=== PATIENT | female | born 1995 | race Caucasian/White ===

== ENCOUNTER 2018-07-09 23:50 | Emergency (ER) | payer OTHER ==
[2018-07-10 01:12] LABS: Urine Blood NEGATIVE (NEG); Urine Glucose NEGATIVE (NEG); Urine Protein NEGATIVE (NEG); Urine Specific Gravity 1.025 (1.005-1.030)
[2018-07-10] MEDS ORDERED: IBUPROFEN 400 MG TAB ONE (03:14)
[2018-07-10] MEDS ORDERED: ACETAMINOPHEN 500 MG TAB ONE (03:15)
[2018-07-10] MEDS ORDERED: IBUPROFEN 200 MG TAB PO ONE (03:15)
--- NOTE | 2018-07-10 05:42 | EDPHYS ---
Physician Documentation [facility] Name: Heena Carlisle Age: 22 yrs Sex: Female : 1995 Arrival Date: 07/09/2018 Time: 23:51 Bed 16 Private MD: ED Physician Nicko Aleman HPI: 07/10 07:25 This 22 yrs old Female presents to ER via Ambulatory with complaints of Low wa Back Pain. 07:25 The patient presents with pain that is acute, and an injury, fell. hit lower back on wa edge of object. The symptoms are located in the lumbar area. The pain does not radiate. The problem was sustained during a fall. Onset: The symptoms/episode began/occurred yesterday. Modifying factors: The patient symptoms are alleviated by nothing, the patient symptoms are aggravated by movement. Associated signs and symptoms: The patient has no apparent associated signs or symptoms. Severity of symptoms: At their worst the symptoms were moderate, in the emergency department the symptoms are actually worse. The patient has not experienced similar symptoms in the past. The patient has not recently seen a physician. 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 - Social history:: Smoking status: Patient/guardian denies using tobacco. - Ebola Screening: : No symptoms or risks identified at this time. - Family history:: not pertinent. - Hospitalizations: : No recent hospitalization is reported. ROS: 07:27 Constitutional: Negative for fever, chills, and weight loss, Eyes: Negative for injury, wa pain, redness, and discharge, ENT: Negative for injury, pain, and discharge, Neck: Negative for injury, pain, and swelling, Cardiovascular: Negative for chest pain, palpitations, and edema, Respiratory: Negative for shortness of breath, cough, wheezing, and pleuritic chest pain, Abdomen/GI: Negative for abdominal pain, nausea, vomiting, diarrhea, and constipation, : Negative for injury, bleeding, discharge, and swelling, MS/Extremity: Negative for injury and deformity, Skin: Negative for injury, rash, and discoloration, Neuro: Negative for headache, weakness, numbness, tingling, and seizure, Psych: Negative for depression, anxiety, suicide ideation, homicidal ideation, and hallucinations. 07:27 Back: Positive for pain at rest, pain with movement, Negative for radiated pain. Exam: 07:27 Constitutional: This is a well developed, well nourished patient who is awake, alert, wa and in no acute distress. Head/Face: Normocephalic, atraumatic. Eyes: Pupils equal round and reactive to light, extra-ocular motions intact. Lids and lashes normal. Conjunctiva and sclera are non-icteric and not injected. Cornea within normal limits. Periorbital areas with no swelling, redness, or edema. ENT: Nares patent. No nasal discharge, no septal abnormalities noted. Tympanic membranes are normal and external auditory canals are clear. Oropharynx with no redness, swelling, or masses, exudates, or evidence of obstruction, uvula midline. Mucous membranes moist. Neck: Trachea midline, no thyromegaly or masses palpated, and no cervical lymphadenopathy. Supple, full range of motion without nuchal rigidity, or vertebral point tenderness. No Meningismus. Chest/axilla: Normal chest wall appearance and motion. Nontender with no deformity. No lesions are appreciated. Cardiovascular: Regular rate and rhythm with a normal S1 and S2. No gallops, murmurs, or rubs. Normal PMI, no JVD. No pulse deficits. Respiratory: Lungs have equal breath sounds bilaterally, clear to auscultation and percussion. No rales, rhonchi or wheezes noted. No increased work of breathing, no retractions or nasal flaring. Abdomen/GI: Soft, non-tender, with normal bowel sounds. No distension or tympany. No guarding or rebound. No evidence of tenderness throughout. Skin: Warm, dry with normal turgor. Normal color with no rashes, no lesions, and no evidence of cellulitis. MS/ Extremity: Pulses equal, no cyanosis. Neurovascular intact. Full, normal range of motion. Neuro: Awake and alert, GCS 15, oriented to person, place, time, and situation. Cranial nerves II-XII grossly intact. Motor strength 5/5 in all extremities. Sensory grossly intact. Cerebellar exam normal. Normal gait. Psych: Awake, alert, with orientation to person, place and time. Behavior, mood, and affect are within normal limits. 07:27 Back: pain, that is moderate, of the lumbar area. Vital Signs: 00:16 BP 123 / 72; Pulse 93; Resp 18; Temp 98.3; Pulse Ox 97% on R/A; Weight 94.35 kg; Height ea 5 ft. 4 in. (162.56 cm); Pain 7/10; 01:15 BP 118 / 70; Pulse 90; Resp 16; Pulse Ox 99% ; rr5 02:00 BP 126 / 79; Pulse 88; Resp 18; Pulse Ox 98% ; rr5 03:00 BP 125 / 73; Pulse 90; Resp 19; Pulse Ox 98% ; rr5 04:00 BP 121 / 69; Pulse 85; Resp 16; Pulse Ox 99% ; rr5 05:00 BP 117 / 71; Pulse 86; Resp 15; Pulse Ox 98% ; rr5 05:56 BP 121 / 77; Pulse 80; Resp 17; Pulse Ox 99% ; rr5 00:16 Body Mass Index 35.70 (94.35 kg, 162.56 cm) MDM: 02:04 Patient medically screened. wa 07:27 Differential diagnosis: strain, fracture, contusion. Data reviewed: vital signs, nurses wa notes. Test interpretation: by ED physician or midlevel provider: lumbar x-ray: no acute fracture. 03 00:51 Order name: Urine Dipstick--Ancillary (enter results); Complete Time: 03:00 ms 03 00:51 Order name: Urine --Ancillary (enter results); Complete Time: 03:00 ms 07/10 02:56 Order name: XRAY Lumbar Spine (3 Views) bb Administered Medications: 03:06 Drug: Tylenol 1000 mg Route: PO; rr5 05:42 Follow up: Response: No adverse reaction rr5 03:07 Drug: Motrin 600 mg Route: PO; rr5 05:43 Follow up: Response: No adverse reaction rr5 Disposition: 07/10/18 05:41 Discharged to Home. Impression: Acute lower back injury. - Condition is Stable. - Discharge Instructions: Back Pain, Adult, Bqry-ev-Wits, Back Injury Prevention. - Prescriptions for Ibuprofen 600 mg Oral Tablet - take 1 tablet by ORAL route every 8 hours As needed take with food; 30 tablet. - Medication Reconciliation Form, Thank You Letter, Antibiotic Education, Prescription Opioid Use form. - Follow up: Private Physician; When: 2 - 3 days; Reason: Re-evaluation by your physician. - Problem is new. - Symptoms have improved. - Notes: take 2 extra-strength tylenol with the ibuprofen 3 times a day as needed. follow up with your doctor for further evaluation within 1 week if pain persists. Signatures: Dispatcher [employer] Laura Mirza RN RN ea Appiah, William, MD MD wa Roque, Raymond, RN RN rr5 Corrections: (The following items were deleted from the chart) 05:57 05:41 07/10/2018 05:41 Discharged to Home. Impression: Acute lower back injury. rr5 Condition is Stable. Forms are Medication Reconciliation Form, Thank You Letter, Antibiotic Education, Prescription Opioid Use. Follow up: Private Physician; When: 2 - 3 days; Reason: Re-evaluation by your physician. Problem is new. Symptoms have improved. miguelito
--- NOTE | 2018-07-10 05:42 | ER ---
Nurse's Notes [facility] Name: Heena Carlisle Age: 22 yrs Sex: Female : 1995 Arrival Date: 07/09/2018 Time: 23:51 Bed 16 Private MD: Diagnosis: Acute lower back injury Presentation: 07/10 00:11 Presenting complaint: Patient states: Patient reports having old injury L5 S1 crushed ea with bulged disk, this morning she reports accidentally hit the counter with her back. Transition of care: patient was not received from another setting of care. Onset of symptoms was July 10, 2018. Risk Assessment: Do you want to hurt yourself or someone else? Patient reports no desire to harm self or others. Initial Sepsis Screen: Does the patient meet any 2 criteria? No. Patient's initial sepsis screen is negative. Does the patient have a suspected source of infection? No. Patient's initial sepsis screen is negative. Care prior to arrival: Medication(s) given: Tylenol codeine 2 hours ago. 00:11 Method Of Arrival: Ambulatory ea 00:11 Acuity: MAE 4 ea Triage Assessment: 00:15 General: Appears uncomfortable, Behavior is appropriate for age. Pain: Complains of ea pain in coccyx, left lower back and right lower back Pain radiates to lumbar area Pain currently is 7 out of 10 on a pain scale. Quality of pain is described as aching, dull. Neuro: Level of Consciousness is awake, alert, obeys commands, Oriented to person, place, time, situation. Respiratory: Airway is patent Respiratory effort is even, unlabored. Derm: Skin is pink, warm \T\ dry. 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 - Social history:: Smoking status: Patient/guardian denies using tobacco. - Ebola Screening: : No symptoms or risks identified at this time. - Family history:: not pertinent. - Hospitalizations: : No recent hospitalization is reported. Screenin:30 Abuse screen: Denies threats or abuse. Denies injuries from another. Nutritional rr5 screening: No deficits noted. Tuberculosis screening: No symptoms or risk factors identified. Fall Risk Total Pope Fall Scale indicates No Risk (0-24 pts). Assessment: 01:30 General: Appears in no apparent distress. uncomfortable, Behavior is calm, cooperative, rr5 appropriate for age. 01:30 Pain: Complains of pain in left low back and right low back Pain radiates to right rr5 gluteus sarath Pain currently is 7 out of 10 on a pain scale. Quality of pain is described as aching, Pain began suddenly, Is intermittent. Neuro: Level of Consciousness is awake, alert, obeys commands, Oriented to person, place, time, situation, Appropriate for age. Cardiovascular: Capillary refill < 3 seconds Patient's skin is warm and dry. Respiratory: Airway is patent Respiratory effort is even, unlabored, Respiratory pattern is regular, symmetrical. GI: No signs and/or symptoms were reported involving the gastrointestinal system. : No signs and/or symptoms were reported regarding the genitourinary system. EENT: No signs and/or symptoms were reported regarding the EENT system. Derm: Skin is intact, Skin temperature is warm. Musculoskeletal: Capillary refill < 3 seconds, Range of motion: intact in all extremities, Reports pain in lower back and right pelvic area. 02:10 Reassessment: Patient appears in no apparent distress at this time. No changes from rr5 previously documented assessment. 03:00 Reassessment: Patient appears in no apparent distress at this time. Patient is alert, rr5 oriented x 3, equal unlabored respirations, skin warm/dry/pink. awaiting for xray result. 04:00 Reassessment: Patient appears in no apparent distress at this time. Patient is alert, rr5 oriented x 3, equal unlabored respirations, skin warm/dry/pink. asleep on bed comfortably. 05:00 Reassessment: Patient appears in no apparent distress at this time. Patient is alert, rr5 oriented x 3, equal unlabored respirations, skin warm/dry/pink. awaiting for review. Patient states symptoms have improved. 05:37 Reassessment: Patient appears in no apparent distress at this time. Patient is alert, rr5 oriented x 3, equal unlabored respirations, skin warm/dry/pink. ED provider reassess the patient, for discharge. 05:54 Reassessment: Patient appears in no apparent distress at this time. Patient is alert, rr5 oriented x 3, equal unlabored respirations, skin warm/dry/pink. discharge instruction given and explained without complaints made. Vital Signs: 00:16 BP 123 / 72; Pulse 93; Resp 18; Temp 98.3; Pulse Ox 97% on R/A; Weight 94.35 kg; Height ea 5 ft. 4 in. (162.56 cm); Pain 7/10; 01:15 BP 118 / 70; Pulse 90; Resp 16; Pulse Ox 99% ; rr5 02:00 BP 126 / 79; Pulse 88; Resp 18; Pulse Ox 98% ; rr5 03:00 BP 125 / 73; Pulse 90; Resp 19; Pulse Ox 98% ; rr5 04:00 BP 121 / 69; Pulse 85; Resp 16; Pulse Ox 99% ; rr5 05:00 BP 117 / 71; Pulse 86; Resp 15; Pulse Ox 98% ; rr5 05:56 BP 121 / 77; Pulse 80; Resp 17; Pulse Ox 99% ; rr5 00:16 Body Mass Index 35.70 (94.35 kg, 162.56 cm) ea ED Course: 03/11 23:51 Patient arrived in ED. am2 03/12 00:13 Triage completed. ea 00:17 Arm band placed on right wrist. Patient placed in waiting room. ea 01:32 Shaun Kaba, RN is Primary Nurse. rr5 01:38 Patient has correct armband on for positive identification. Bed in low position. Call rr5 light in reach. Side rails up X2. Pulse ox on. NIBP on. 02:04 Nicko Aleman MD is Attending Physician. wa 03:19 Patient moved to radiology via wheelchair. kw 03:19 X-ray completed. Patient tolerated procedure well. kw 03:19 Patient moved back from radiology. kw 03:21 XRAY Lumbar Spine (3 Views) In Process Unspecified. EDMS 05:38 No provider procedures requiring assistance completed. Patient did not have IV access rr5 during this emergency room visit. Administered Medications: 03:06 Drug: Tylenol 1000 mg Route: PO; rr5 05:42 Follow up: Response: No adverse reaction rr5 03:07 Drug: Motrin 600 mg Route: PO; rr5 05:43 Follow up: Response: No adverse reaction rr5 Outcome: 05:41 Discharge ordered by . miguelito 05:55 Discharged to home ambulatory. rr5 05:55 Condition: stable 05:55 Discharge instructions given to patient, Instructed on discharge instructions, follow up and referral plans. medication usage, Demonstrated understanding of instructions, follow-up care, medications, Prescriptions given X 1. 05:57 Patient left the ED. rr5 Signatures: Dispatcher [employer] EDMS Radha Hill Amanda am2 Laura Carrillo RN RN ea Appiah, William, MD MD wa Roque, Raymond, RN RN rr5 Corrections: (The following items were deleted from the chart) 02:58 01:30 Fall Risk Fall in past 12 months (25 points). Total Pope Fall Scale indicates rr5 Low Risk Score (25-44 pts). Fall prevention measures have been instituted. Side Rails Up X 2 Frequent Obs/Assesments occuring Family Present and informed to notify staff if they need to leave bedside As available Patient and Family Educated on Fall Prevention Program and strategies. rr5 05:43 05:00 BP 117 / 71; Pulse 6bpm; Resp 15bpm; Pulse Ox 98%; rr5 rr5
--- NOTE | 2018-07-10 09:21 | RAD REPORT ---
EXAM DESCRIPTION: RAD - Lumbar Spine 3 Views - 07/10/2018 3:26 am CLINICAL HISTORY: Back pain, radiculopathy COMPARISON: None. FINDINGS: A three-view lumbar spine examination was performed. Lumbar bodies are normal in height an d alignment. No fracture or acute bony process seen. No disc space narrowing. No other significant fi ndings. No pars defects identified. IMPRESSION: Negative Lumbar Spine examination.
== END 2018-07-10 05:57 | disposition home or self-care (01) ==
LOC: ER 23:50
DX: S39.92XA Unspecified injury of lower back, initial encounter (principal); W01.10XA Fall on same level from slipping, tripping and stumbling with subsequent striking against unspecified object, initial encounter
CPT/HCPCS: 72100; 81003; 81025; 99284

== ENCOUNTER 2019-10-02 15:35 | Emergency (ER) | payer OTHER ==
[2019-10-02] MEDS ORDERED: FAMOTIDINE 20 MG/2 ML VIAL IV ONE (18:21)
[2019-10-02] MEDS ORDERED: NA CHLORIDE 0.9% 1,000 ML ONE (18:21)
[2019-10-02] MEDS ORDERED: ONDANSETRON 4 MG/2 ML VIAL ONE (18:21)
[2019-10-02 18:40] LABS: Absolute Lymphocytes (CBC) 2.5 K/uL (0.7-4.9); Basophils % 0.4 % (0-1.3); Hematocrit 38.5 % (36.0-45.0); Lymphocytes % 30.6 % (15.3-44.8); MPV 9.7 fL (7.6-11.3); RBC Red Blood Cell Count 4.61 M/uL (3.86-4.86)
[2019-10-02 19:33] LABS: BUN Blood Urea Nitrogen 6 mg/dL (7-18); Bicarbonate 25 mmol/L (21-32); Glucose Level 86 mg/dL (74-106); HCG, Quantitative 141496 mIU/mL (1-3); Lipase 96 U/L (73-393); Potassium 3.5 mmol/L (3.5-5.1); Sodium Level 136 mmol/L (136-145)
[2019-10-02 19:35] LABS: Urine Bacteria <20 /HPF (<20); Urine Culture Reflex Order NOT NEEDED; Urine Mucus 2+ /HPF (NONE SEEN); Urine RBC <5 /HPF (NONE SEEN)
[2019-10-02 20:07] LABS: Urine Blood NEGATIVE (NEG); Urine Glucose NEGATIVE (NEG); Urine Specific Gravity 1.025 (1.005-1.030); Urine pH 5.5 (5.0-7.0)
[2019-10-02 20:08] LABS: Urine Protein NEGATIVE (NEG)
--- NOTE | 2019-10-02 23:25 | EDPHYS ---
Physician Documentation [facility] Name: Heena Carlisle Age: 24 yrs Sex: Female : 1995 Arrival Date: 10/02/2019 Time: 15:39 Bed 5 Private MD: ED Physician Javier Oliver HPI: 10/01 18:05 This 24 yrs old Female presents to ER via Ambulatory with complaints of cp Vomiting - unk wks preg. 18:05 The patient presents to the emergency department with nausea, that is moderate, cp vomiting, that is intermittent. 18:05 Onset: The symptoms/episode began/occurred 4 week(s) ago. Possible causes: . cp Associated signs and symptoms: Pertinent positives: abdominal pain, anorexia, Pertinent negatives: constipation, diarrhea, fever, GI bleeding, vaginal discharge, vaginal bleeding, leakage of fluids. Severity of symptoms: in the emergency department the symptoms are unchanged despite home interventions. 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 - Social history:: Smoking status: unknown. ROS: 18:15 Constitutional: Negative for body aches, chills, fever. cp 18:15 Eyes: Negative for injury, pain, redness, and discharge. cp 18:15 Cardiovascular: Negative for chest pain. 18:15 Respiratory: Negative for cough, shortness of breath, wheezing. 18:15 Abdomen/GI: Positive for abdominal pain, nausea and vomiting, anorexia, Negative for diarrhea, constipation, hematemesis, black/tarry stool, rectal bleeding. 18:15 : Negative for urinary symptoms, vaginal bleeding, vaginal discharge. 18:15 Neuro: Negative for altered mental status, headache, weakness. 18:15 All other systems are negative. Exam: 18:20 Constitutional: The patient appears in no acute distress, alert, awake, non-toxic, well cp developed, well nourished. 18:20 Head/Face: Normocephalic, atraumatic. cp 18:20 Eyes: Periorbital structures: appear normal, Conjunctiva: normal, no exudate, no injection, Sclera: no appreciated abnormality, Lids and lashes: appear normal, bilaterally. 18:20 ENT: External ear(s): are unremarkable, Nose: is normal, Mouth: Lips: moist, Oral mucosa: moist, Posterior pharynx: Airway: no evidence of obstruction, patent, swelling, is not appreciated, erythema, is not appreciated, exudate, is not appreciated. 18:20 Chest/axilla: Inspection: normal, Palpation: is normal, no crepitus, no tenderness. 18:20 Cardiovascular: Rate: normal, Rhythm: regular, Edema: is not appreciated. 18:20 Respiratory: the patient does not display signs of respiratory distress, Respirations: normal, no use of accessory muscles, no retractions, labored breathing, is not present, Breath sounds: are clear throughout, no decreased breath sounds, no wheezing. 18:20 Abdomen/GI: Inspection: abdomen appears normal, Bowel sounds: active, all quadrants, Palpation: soft, in all quadrants, mild abdominal tenderness, in the right upper quadrant and left upper quadrant, rebound tenderness, is not appreciated, voluntary guarding, is not appreciated, involuntary guarding, is not appreciated. 18:20 Back: pain, is absent, ROM is normal. 18:20 Neuro: Orientation: to person, place \T\ time. Mentation: is normal, Motor: moves all fours, strength is normal, Sensation: is normal. Vital Signs: 15:45 BP 117 / 69; Pulse 78; Resp 20; Temp 98.8; Pulse Ox 100% ; Weight 96.16 kg; Height 5 sv ft. 4 in. (162.56 cm); 18:00 BP 125 / 78; Pulse 68; Resp 16; Pulse Ox 100% ; jl7 19:57 BP 131 / 74; Pulse 88; Resp 18; Pulse Ox 99% ; ea 20:30 BP 124 / 71; Pulse 68; Resp 18; Temp 98(TE); Pulse Ox 98% ; ea 21:00 BP 105 / 63; Pulse 78; Resp 18; Pulse Ox 100% ; ea 22:00 BP 104 / 57; Pulse 70; Resp 18; Pulse Ox 98% ; ea 23:00 BP 123 / 57; Pulse 72; Resp 18; Pulse Ox 100% on R/A; ea 15:45 Body Mass Index 36.39 (96.16 kg, 162.56 cm) sv MDM: 17:35 Patient medically screened. cp 18:35 Differential diagnosis: gastritis, viral gastroenteritis, gastroenteritis, hyperemesis cp , electrolyte abnormality, dehydration. 23:25 Data reviewed: vital signs, nurses notes, lab test result(s), radiologic studies, cp ultrasound. 23:25 Counseling: I had a detailed discussion with the patient and/or guardian regarding: the cp historical points, exam findings, and any diagnostic results supporting the discharge/admit diagnosis, lab results, radiology results, the need for outpatient follow up, an OB/Gyne specialist, to return to the emergency department if symptoms worsen or persist or if there are any questions or concerns that arise at home. Response to treatment: the patient's symptoms have markedly improved after treatment, patient is well hydrated. VSS. Nausea improved and vomiting resolved. US results show approximate 8 week IUP. Will discharge to home for continued monitoring. 10/01 17:56 Order name: Urine Microscopic Only; Complete Time: 20:19 aa5 10/01 18:03 Order name: Urine Dipstick--Ancillary (enter results); Complete Time: 20:19 10/01 21:01 Interpretation: Normal except: UESTR TRACE. 10/01 18:03 Order name: Urine --Ancillary (enter results); Complete Time: 20:19 10/01 23:14 Interpretation: Reviewed. 10/01 18:04 Order name: Quantitative Hcg; Complete Time: 20:19 10/01 21:01 Interpretation: Abnormal: HCGQ [id number]. 10/01 18:04 Order name: Abo/rh Typing; Complete Time: 20:19 10/01 18:04 Order name: Basic Metabolic Panel; Complete Time: 20:19 10/01 23:14 Interpretation: Normal except: BUN 6. 10/01 17:28 Order name: Urine Dipstick-Ancillary (obtain specimen); Complete Time: 17:57 10/01 17:28 Order name: Urine Test (obtain specimen); Complete Time: 17:57 10/01 18:04 Order name: CBC with Diff; Complete Time: 20:19 10/01 23:14 Interpretation: Reviewed. cp 10/01 18:04 Order name: Lipase; Complete Time: 20:19 cp 10/01 18:29 Order name: US Transvaginal Ob cp 10/01 18:04 Order name: IV Saline Lock; Complete Time: 18:31 cp 10/01 18:04 Order name: Labs collected and sent; Complete Time: 18:31 cp 10/01 18:04 Order name: NPO; Complete Time: 18:31 cp 10/01 23:13 Order name: PO challenge; Complete Time: 23:21 cp Administered Medications: 18:25 Drug: NS 0.9% 1000 ml Route: IV; Rate: 1 bolus; Site: right antecubital; jl7 23:44 Follow up: Response: No adverse reaction; IV Status: Completed infusion; IV Intake: ea 1000ml 18:25 Drug: Pepcid 20 mg Route: IVP; Site: right antecubital; jl7 23:44 Follow up: Response: No adverse reaction ea 18:28 Drug: Zofran (Ondansetron) 4 mg Route: IVP; Site: right antecubital; jl7 23:44 Follow up: Response: No adverse reaction ea Disposition: 10/02 09:06 Co-signature as Attending Physician, Javier Oliver MD I agree with the assessment and kdr plan of care. Disposition: 10/02/19 23:25 Discharged to Home. Impression: related conditions, unspecified, first trimester, Nausea and vomiting. - Condition is Stable. - Discharge Instructions: Nausea and Vomiting, Adult, First Trimester of . - Prescriptions for Diclegis 10- 10 mg Oral tablet,delayed release (DR/EC) - take 1 tablet by ORAL route as directed As needed 1 tablet before meals and 2 tablets at bedtime; 30 tablet. Phenergan 25 mg Rectal Suppository - insert 1 suppository by RECTAL route every 6 hours As needed; 12 suppository. promethazine 25 mg Oral Tablet - take 1 tablet by ORAL route every 6 hours As needed; 20 tablet. - Medication Reconciliation Form, Thank You Letter, Antibiotic Education, Prescription Opioid Use form. - Follow up: Private Physician; When: 1 - 2 days; Reason: Recheck today's complaints. - Problem is new. - Symptoms have improved. Signatures: Dispatcher [employer] Alesia Abdul RN RN sv Javier Olievr MD MD kdr Page, Corey, PA PA cp Leal, Jahala RN RN jl7 Laura Carrillo RN RN ea Corrections: (The following items were deleted from the chart) 10/01 23:43 23:25 10/02/2019 23:25 Discharged to Home. Impression: related conditions, ea unspecified, first trimester; Nausea and vomiting. Condition is Stable. Forms are Medication Reconciliation Form, Thank You Letter, Antibiotic Education, Prescription Opioid Use. Follow up: Private Physician; When: 1 - 2 days; Reason: Recheck today's complaints. Problem is new. Symptoms have improved. cp
--- NOTE | 2019-10-02 23:25 | ER ---
Nurse's Notes [facility] Name: Heena Carlisle Age: 24 yrs Sex: Female : 1995 Arrival Date: 10/02/2019 Time: 15:39 Bed 5 Private MD: Diagnosis: related conditions, unspecified, first trimester;Nausea and vomiting Presentation: 10/01 15:43 Chief complaint: Patient states: vomiting started 4 weeks ago, hx HG. Pt is 2.5 months sv . Reports increasing fatigue and 10 pound wt loss in 2 wks. Risk Assessment: Do you want to hurt yourself or someone else? Patient reports no desire to harm self or others. Onset of symptoms was August 2019. 15:43 Method Of Arrival: Ambulatory sv 15:43 Acuity: MAE 3 sv 15:44 Coronavirus screen: Proceed with normal triage. Patient denies a cough. Patient denies sv shortness of breath or difficulty breathing. Patient denies measured and/or subjective temperature greater than 100.4F prior to today's visit. Patient denies travel on a cruise ship or to a country the [facility] currently lists as an affected area. Patient denies contact with known and/or suspected case of COVID-19. Ebola Screen: No symptoms or risks identified at this time. 15:45 Initial Sepsis Screen: Does the patient meet any 2 criteria? No. Patient's initial sv sepsis screen is negative. Does the patient have a suspected source of infection? No. Patient's initial sepsis screen is negative. Triage Assessment: 15:47 General: Appears in no apparent distress. uncomfortable, Behavior is calm, cooperative, sv appropriate for age. Pain: Denies pain. Neuro: Level of Consciousness is awake, alert, obeys commands, Oriented to person, place, time, situation, Moves all extremities. Full function Gait is steady, Reports weakness. Respiratory: Respiratory effort is even, unlabored. GI: Reports nausea. 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 - Social history:: Smoking status: unknown. Screenin:45 Abuse screen: Denies threats or abuse. Denies injuries from another. Nutritional jl7 screening: No deficits noted. Tuberculosis screening: No symptoms or risk factors identified. Fall Risk None identified. Assessment: 17:45 General: Appears in no apparent distress. uncomfortable, Behavior is calm, cooperative. jl7 Pain: Complains of pain in epigastric area, right lower quadrant and left lower quadrant Pain currently is 0 out of 10 on a pain scale. at worst was 5 out of 10 on a pain scale. Quality of pain is described as sharp, Is intermittent. Neuro: Level of Consciousness is awake, alert, obeys commands, Oriented to person, place, time, situation. Cardiovascular: Patient's skin is warm and dry. Respiratory: Airway is patent Respiratory effort is even, unlabored, Respiratory pattern is regular, symmetrical. GI: Abdomen is round non-distended, obese, Last BM was September 30, 2019. Last meal was October 01, 2019. Reports constipation, nausea, vomiting. : Urine is clear, Denies burning with urination. Derm: Skin is pink, warm \T\ dry. 19:54 General: Appears in no apparent distress. uncomfortable, Behavior is calm, cooperative. ea Pain: Complains of pain in abdomen. Neuro: Level of Consciousness is awake, alert, obeys commands, Oriented to person, place, time, situation. Cardiovascular: Patient's skin is warm and dry. Respiratory: Airway is patent Respiratory effort is even, unlabored, Respiratory pattern is regular, symmetrical. Derm: Skin is dry, Skin is pale, Skin temperature is warm. 20:00 Reassessment: Patient and/or family updated on plan of care and expected duration. Pain ea level reassessed. Patient is alert, oriented x 3, equal unlabored respirations, skin warm/dry/pink. 21:07 Reassessment: Patient and/or family updated on plan of care and expected duration. Pain ea level reassessed. Patient is alert, oriented x 3, equal unlabored respirations, skin warm/dry/pink. Patient states feeling better. 21:07 Reassessment: Pt was able to tolerate crackers. ea 22:00 Reassessment: Pt resting with eyes closed, respirations even and unlabored, chest ea expansions even and symmetrical. 23:00 Reassessment: Patient and/or family updated on plan of care and expected duration. Pain ea level reassessed. Patient is alert, oriented x 3, equal unlabored respirations, skin warm/dry/pink. awaiting on ultrasound. 23:42 Reassessment: Patient and/or family updated on plan of care and expected duration. Pain ea level reassessed. Patient is alert, oriented x 3, equal unlabored respirations, skin warm/dry/pink. Discharge instruction given to patient, verbalized the understanding of instruction. Pt left ED ambulatory tolerating well. Patient states feeling better. Vital Signs: 15:45 BP 117 / 69; Pulse 78; Resp 20; Temp 98.8; Pulse Ox 100% ; Weight 96.16 kg; Height 5 sv ft. 4 in. (162.56 cm); 18:00 BP 125 / 78; Pulse 68; Resp 16; Pulse Ox 100% ; jl7 19:57 BP 131 / 74; Pulse 88; Resp 18; Pulse Ox 99% ; ea 20:30 BP 124 / 71; Pulse 68; Resp 18; Temp 98(TE); Pulse Ox 98% ; ea 21:00 BP 105 / 63; Pulse 78; Resp 18; Pulse Ox 100% ; ea 22:00 BP 104 / 57; Pulse 70; Resp 18; Pulse Ox 98% ; ea 23:00 BP 123 / 57; Pulse 72; Resp 18; Pulse Ox 100% on R/A; ea 15:45 Body Mass Index 36.39 (96.16 kg, 162.56 cm) sv ED Course: 15:39 Patient arrived in ED. as 15:43 Arm band placed on. sv 15:44 Triage completed. sv 17:27 Rell Hunt PA is PHCP. cp 17:27 Javier Oliver MD is Attending Physician. cp 17:38 Tosha Landon RN is Primary Nurse. jl7 17:45 Patient has correct armband on for positive identification. Bed in low position. Call jl7 light in reach. Side rails up X2. Pulse ox on. NIBP on. 17:45 Urine collected: clean catch specimen, clear. jl7 18:32 Initial lab(s) drawn, by me, sent to lab. Inserted saline lock: 20 gauge in right jl7 antecubital area, using aseptic technique. Blood collected. 23:40 IV discontinued, intact, bleeding controlled, No redness/swelling at site. Pressure ea dressing applied. 23:43 No provider procedures requiring assistance completed. ea 23:55 Transvaginal Ob In Process Unspecified. EDMS Administered Medications: 18:25 Drug: NS 0.9% 1000 ml Route: IV; Rate: 1 bolus; Site: right antecubital; jl7 23:44 Follow up: Response: No adverse reaction; IV Status: Completed infusion; IV Intake: ea 1000ml 18:25 Drug: Pepcid 20 mg Route: IVP; Site: right antecubital; jl7 23:44 Follow up: Response: No adverse reaction ea 18:28 Drug: Zofran (Ondansetron) 4 mg Route: IVP; Site: right antecubital; jl7 23:44 Follow up: Response: No adverse reaction ea Intake: 23:44 IV: 1000ml; Total: 1000ml. ea Outcome: 23:25 Discharge ordered by MD. sue 23:43 Discharged to home ambulatory, with family. ea 23:43 Condition: stable 23:43 Discharge instructions given to patient, Instructed on discharge instructions, follow up and referral plans. medication usage, Demonstrated understanding of instructions, follow-up care, medications, Prescriptions given X 3. 23:43 Patient left the ED. ea Signatures: Dispatcher [employer] EDMS Alesia Marin RN RN sv Martinez, Amelia as Page, Corey, PA PA cp Leal, Jahala, RN RN jl7 Laura Carrillo RN RN ea Corrections: (The following items were deleted from the chart) 15:45 15:43 Chief complaint: Patient states: vomiting started 4 weeks ago, hx HG. Pt is 2.5 sv months . sv 15:47 15:43 Chief complaint: Patient states: vomiting started 4 weeks ago, hx HG. Pt is 2.5 sv months . Reports increasing fatigue. sv 15:48 15:45 Pulse 78bpm; Resp 20bpm; Pulse Ox 100%; Temp 98.8F; 96.16 kg; Height 5 ft. 4 in.; sv BMI: 36.3; sv 16:55 15:43 Chief complaint: Patient states: vomiting started 4 weeks ago, hx HG. Pt is 2.5 sv months . Reports increasing fatigue abd 10 pound wt loss in 2 wks sv
[2019-10-02 23:54] VITALS: BP 131/74; O2SAT 99
[2019-10-02 23:55] VITALS: TEMP 98
--- NOTE | 2019-10-03 07:40 | RAD REPORT ---
EXAM DESCRIPTION: US - Transvaginal OB - 10/02/2019 11:55 pm CLINICAL HISTORY: with pelvic pain and vomiting COMPARISON: None. FINDINGS: The uterus measures 12 x 7 x 7 centimeters. A normal appearing gestational sac is present within the endometrium. Within this is a yolk sac and pole with a crown-rump length 2.3 centim eters. Cardiac activity 164 beats per minute Neither ovary seen secondary to overlying bowel gas. . An adnexal mass is not noted. No significant free fluid is seen. IMPRESSION: Single live intrauterine with an estimated gestational age 8 weeks 5 days JARED May 08 2020
== END 2019-10-02 23:43 | disposition home or self-care (01) ==
LOC: ER 15:35
DX: O21.0 Mild hyperemesis gravidarum (principal); Z3A.09 9 weeks gestation of pregnancy; Z91.041 Radiographic dye allergy status
CPT/HCPCS: 96361; 85025; 80048; 36415; 86900; 81025; 86901; 84702; 83690; 76817; 96375; 96374; 99284; J7030; J2405; 81003; 81015